=== PATIENT | female | born 1950 | race Caucasian/White ===

== ENCOUNTER 2016-03-22 06:57 | Emergency (ER) | payer OTHER ==
[~2016-03-22] VITALS: Ht 162.6 cm; Wt 77.2 kg
[~2016-03-22 06:57] MED LIST: LORTAB 5-325 M1 EACH PO
[2016-03-22] MEDS ORDERED: FERROUS SULFAT325 MG PO (07:12)
[2016-03-22] MEDS ORDERED: CYANOCOBALAM1000 MCG PO (07:12)
[2016-03-22] MEDS ORDERED: FEXOFENADINE H180 MG PO (07:12)
[2016-03-22] MEDS ORDERED: ASPIR 8181 M1 PO (07:12)
[2016-03-22] MEDS ORDERED: EPIPEN ADU0.3 MG/0.3 IM (07:13)
[2016-03-22] MEDS ORDERED: ADVAIR 250/501 DISK IH (07:13)
[2016-03-22] MEDS ORDERED: FLONASE16 G1 BOTH NARES (07:13)
[2016-03-22] MEDS ORDERED: CALCITRATE + D1 EACH PO (07:13)
[2016-03-22] MEDS ORDERED: LYRICA100 MG PO (07:14)
[2016-03-22] MEDS ORDERED: PRENATAL VITAM1 EAC6 PO (07:15)
[2016-03-22] MEDS ORDERED: PANTOPRAZOLE SO40 MG PO (07:15)
[2016-03-22 09:53] VITALS: BP 140/75
== END 2016-03-22 09:57 | disposition home or self-care (01) ==
LOC: EME 06:57
DX: S00.03XA Contusion of scalp, initial encounter (principal); E11.9 Type 2 diabetes mellitus without complications; E78.5 Hyperlipidemia, unspecified; I10 Essential (primary) hypertension; W00.0XXA Fall on same level due to ice and snow, initial encounter; Z98.84 Bariatric surgery status
CPT/HCPCS: 70450; 99281; 99284

== ENCOUNTER → 2016-10-27 | Outpatient (CLI) | payer OTHER ==
[~2016-10-27] VITALS: Ht 165.1 cm; Wt 74.8 kg
[~2016-10-27] MED LIST changes: +ADVAIR 250/501 DISK IH; +ASPIR 8181 M1 PO; +BIOTIN10000 MC1 PO; +CALCITRATE + D1 EACH PO; +CYANOCOBALAM1000 MCG PO; +DETROL LA4 MG PO; +EPIPEN ADU0.3 MG/0.3 IM; +FERROUS SULFAT325 MG PO; +FEXOFENADINE H180 MG PO; +FLONASE16 G1 BOTH NARES; +LYRICA100 MG PO; +PANTOPRAZOLE SO40 MG PO; +PRENATAL TABLE1 EAC3 PO; +PRENATAL VITAM1 EAC6 PO; +PROBIOTIC1 EAC3 PO; +SALINE MIST45 ML BOTH NARES; +VITAMIN B-122000 MC1 PO; +[UNRECOGNIZED DRUG - OTHER] PO
== END | disposition home or self-care (01) ==
LOC: AMB 06:58
PROC: 0DBE8ZX Excision of Large Intestine, Via Natural or Artificial Opening Endoscopic, Diagnostic (ICD-10-PCS; principal; 2016-10-27)
DX: K58.0 Irritable bowel syndrome with diarrhea (principal); Z86.010 Personal history of colon polyps; Z86.718 Personal history of other venous thrombosis and embolism; J45.909 Unspecified asthma, uncomplicated; K21.9 Gastro-esophageal reflux disease without esophagitis; Z98.84 Bariatric surgery status; M19.90 Unspecified osteoarthritis, unspecified site; E11.40 Type 2 diabetes mellitus with diabetic neuropathy, unspecified; Z79.4 Long term (current) use of insulin; Z87.891 Personal history of nicotine dependence; Z79.82 Long term (current) use of aspirin; Z80.3 Family history of malignant neoplasm of breast; Z98.1 Arthrodesis status; Z82.49 Family history of ischemic heart disease and other diseases of the circulatory system; Z83.49 Family history of other endocrine, nutritional and metabolic diseases
CPT/HCPCS: 88305; J2250; J3010